=== PATIENT | male | born 1980 | race Caucasian/White ===

== ENCOUNTER 2017-02-13 15:26 | Emergency (ER) | payer OTHER ==
[~2017-02-13] VITALS: Ht 190.5 cm; Wt 100.0 kg
[~2017-02-13 15:26] MED LIST: CEPH-443 PO
[2017-02-13 15:35] VITALS: Ht 190.5 cm; Wt 100.0 kg
[2017-02-13] MEDS ORDERED: OLAN10TA7 PO (15:53)
[2017-02-13] MEDS ORDERED: QUET25TA26 PO (15:53)
--- NOTE | 2017-02-13 15:54 | RADRPT ---
PROCEDURE: XR Chest. CLINICAL INDICATION: Chest Pain. TECHNIQUE: Single frontal view of the chest was obtained. COMPARISON: None. FINDINGS: There is discoid atelectasis versus scarring in the right mid lung. There is mild cardiomegaly. There is no significant pleural effusion or pneumothorax. IMPRESSION: Discoid atelectasis versus scarring in the right mid lung. Mild cardiomegaly. RPTAT: EE Physician Nick Date Time Electronically viewed and signed by Jesse Olivas Physician on 02/13/2017 15:54 RA/
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
--- NOTE | 2017-02-13 17:08 | RADRPT ---
PROCEDURE: CT facial bones CLINICAL INDICATION: Trauma, pain TECHNIQUE: A CT of the facial bones was performed on a multidetector CT scanner utilizing thin axi al images. Sagittal and coronal reconstructions were provided. The CTDIvol is 30 mGy and the DLP i s 571mGy-cm. One or more of the following dose reduction techniques were used: Automated exposure c ontrol, Adjustment of the mA and/or kV according to patient size, and/or use of iterative reconstruc tion technique. COMPARISON: None available. FINDINGS: Right periorbital soft tissue swelling. Chronic left lamina papyracea fracture. The nasal bones, zyg omatic arches and pterygoid plates are intact. The mandible is intact. The temporomandibular joint s are in anatomic alignment on the closed mouth view. The right orbit is intact. The globes are gr ossly intact. Trace scattered paranasal sinus mucosal thickening without layering sinus fluid identi fied. Partial opacification of the left middle ear cavity. IMPRESSION: Right periorbital soft tissue swelling. No acute facial bone fracture. Chronic left lamina papyracea fracture. RPTAT: AA .Jaun Espinal MD, Date Time Electronically viewed and signed by .Jaun Espinal MD, on 02/13/2017 17:08 .T/
== END 2017-02-13 16:57 | disposition home or self-care (01) ==
LOC: E/R 15:26
DX: T40.1X1A Poisoning by heroin, accidental (unintentional), initial encounter (principal); R40.2252 Coma scale, best verbal response, oriented, at arrival to emergency department; F17.210 Nicotine dependence, cigarettes, uncomplicated; R07.9 Chest pain, unspecified; R40.2142 Coma scale, eyes open, spontaneous, at arrival to emergency department; R40.2362 Coma scale, best motor response, obeys commands, at arrival to emergency department
CPT/HCPCS: 70486; 71010; 93005

== ENCOUNTER 2017-02-22 14:23 | Emergency (ER) | payer OTHER ==
[~2017-02-22] VITALS: Ht 157.5 cm; Wt 103.0 kg
[~2017-02-22 14:23] MED LIST changes: -CEPH-443 PO; +OLAN10TA7 PO; +QUET25TA26 PO
[2017-02-22 14:27] VITALS: Ht 157.5 cm; Wt 103.0 kg
[2017-02-22] MEDS ORDERED: CEPH-443 PO (15:29)
[2017-02-22] MEDS ORDERED: CIPR7.5D4 LEFT EAR (15:29)
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
== END 2017-02-22 15:38 | disposition home or self-care (01) ==
LOC: FTE 14:23
DX: S61.201A Unspecified open wound of left index finger without damage to nail, initial encounter (principal); H60.502 Unspecified acute noninfective otitis externa, left ear; X58.XXXA Exposure to other specified factors, initial encounter; Y92.9 Unspecified place or not applicable; Z87.891 Personal history of nicotine dependence
CPT/HCPCS: 99283

== ENCOUNTER 2017-06-09 23:10 | Emergency (ER) | payer SELFPAY ==
[~2017-06-09] VITALS: Ht 190.5 cm; Wt 104.5 kg
[~2017-06-09 23:10] MED LIST changes: +CEPH-443 PO; +CIPR7.5D4 LEFT EAR
[2017-06-09 23:26] VITALS: Ht 190.5 cm; Wt 104.5 kg
== END 2017-06-10 02:28 | disposition left against medical advice (07) ==
LOC: E/R 23:10
DX: Z53.21 Procedure and treatment not carried out due to patient leaving prior to being seen by health care provider (principal)

== ENCOUNTER 2017-10-06 19:43 | Emergency (ER) | END 2017-10-06 22:09 | disposition left against medical advice (07) ==

== ENCOUNTER 2018-12-14 10:49 | Emergency (ER) | payer OTHER ==
[~2018-12-14] VITALS: Ht 190.5 cm; Wt 119.8 kg
[~2018-12-14 10:49] MED LIST changes: +CIPR7.5D LEFT EAR; -CIPR7.5D4 LEFT EAR; +QUET25TA PO; -QUET25TA26 PO
[2018-12-14 11:28] VITALS: Ht 190.5 cm; Wt 119.8 kg
--- NOTE | 2018-12-14 13:21 | ERD ---
ER Documentation Chief Complaint Chief Complaint BILATERAL LEG PAIN/SWELLING/REDNESS HPI The patient is a 38-year-old male, presenting with bilateral leg redness and swelling for the last couple days, denies similar symptoms previously, denies hemoptysis, hematemesis, dyspnea, abdominal pain, vomiting, denies similar symptoms previously. He smokes, denies drinking, history of heroin abuse Past medical history: None Past surgical history: None ROS All systems reviewed and are negative except as per history of present illness. Medications Home Meds Active Scripts Clindamycin Hcl* (Clindamycin Hcl*) 300 Mg Capsule, 300 MG PO QID for 10 Days, CAP Prov:EDITH WOODY MD 12/14/18 Cephalexin* (Keflex*) 500 Mg Capsule, 500 MG PO TID for 7 Days, CAP Prov:SONIA PATTERSON MD 02/22/17 Ciprofloxacin Hcl/Dexameth (Ciprodex Otic Suspension) 7.5 Ml Drops.susp, 4 DROP LEFT EAR BID for 7 Days, EA Prov:SONIA PATTERSON MD 02/22/17 Reported Medications Olanzapine* (Zyprexa*) 10 Mg Tablet, 10 MG PO DAILY, #30 TAB 02/13/17 Quetiapine Fumarate* (Seroquel*) 25 Mg Tablet, 25 MG PO DAILY, #30 TAB 02/13/17 Allergies Allergies: Coded Allergies: No Known Allergy (Unverified , 02/13/17) PMhx/Soc Hx Alcohol Use: No Hx Substance Use: Yes (HEROIN) Hx Tobacco Use: Yes Physical Exam Vitals Vital Signs Date Temp Pulse Resp B/P (MAP) Pulse Ox O2 O2 Flow FiO2 Time Delivery Rate 12/14/18 98.6 101 18 105/75 17:32 (85) 12/14/18 87 17 107/70 Room Air 16:25 (82) 12/14/18 72 12 111/75 100 Room Air 15:14 (87) 12/14/18 66 17 111/78 100 Room Air 13:56 (89) 12/14/18 97.4 85 16 135/63 97 11:28 (87) Physical Exam Const: No acute distress. Head: Atraumatic. Eyes: Normal Conjunctiva. ENT: Normal External Ears, Nose and Mouth. Neck: Full range of motion. No meningismus. Resp: Clear to auscultation bilaterally. Cardio: Regular rate and rhythm. Abd: Soft, non distended, normal bowel sounds, non tender. Skin: No petechiae or rashes. Back: No midline or flank tenderness. Ext: Bilateral lower extremity with minimal erythema and mild calf tenderness and edema Neur: Awake and alert. No focal deficit Psych: Normal Mood and Affect. Result Diagram: 12/14/18 1425 12/14/18 1425 Results 24 hrs Laboratory Tests Test 12/14/18 14:25 White Blood Count 6.7 10^3/ul Red Blood Count 4.90 10^6/ul Hemoglobin 11.8 g/dl Hematocrit 37.6 % Mean Corpuscular Volume 76.7 fl Mean Corpuscular Hemoglobin 24.1 pg Mean Corpuscular Hemoglobin Concent 31.4 g/dl Red Cell Distribution Width 17.6 % Platelet Count 311 10^3/UL Mean Platelet Volume 10.2 fl Immature Granulocytes % 0.300 % Neutrophils % 48.2 % Lymphocytes % 28.4 % Monocytes % 20.3 % Eosinophils % 2.3 % Basophils % 0.5 % Nucleated Red Blood Cells % 0.0 /100WBC Immature Granulocytes # 0.020 10^3/ul Neutrophils # 3.2 10^3/ul Lymphocytes # 1.9 10^3/ul Monocytes # 1.4 10^3/ul Eosinophils # 0.2 10^3/ul Basophils # 0.0 10^3/ul Nucleated Red Blood Cells # 0.0 10^3/ul Sodium Level 136 mmol/L Potassium Level 4.1 mmol/L Chloride Level 105 mmol/L Carbon Dioxide Level 27 mmol/L Anion Gap 4 Blood Urea Nitrogen 10 mg/dl Creatinine 0.65 mg/dl Est Glomerular Filtrat Rate mL/min > 60 mL/min Glucose Level 89 mg/dl Calcium Level 8.6 mg/dl Total Bilirubin 0.2 mg/dl Direct Bilirubin 0.00 mg/dl Indirect Bilirubin 0.2 mg/dl Aspartate Amino Transf (AST/SGOT) 43 IU/L Alanine Aminotransferase (ALT/SGPT) 42 IU/L Alkaline Phosphatase 139 IU/L B-Type Natriuretic Peptide 14 PG/ML Total Protein 6.8 g/dl Albumin 3.7 g/dl Globulin 3.10 g/dl Albumin/Globulin Ratio 1.19 [facility] [address] Radiology Main Line: [phone] DIAGNOSTIC IMAGING REPORT Patient: HOSSEIN GUZMAN : 1980 Age: 38 Sex: M MR #: [id number] DOS: 12/14/18 1332 Ordering MD: EDITH WOODY MD Location: E/R Room/Bed: PROCEDURE: XR Chest. CLINICAL INDICATION: Chest pain TECHNIQUE: Single portable view of the chest was obtained COMPARISON: None FINDINGS: The heart and mediastinum are within normal limits. There are right mid lung and left lower lobe linear atelectatic changes. The lungs are otherwise clear. There is no pleural effusion or pneumothorax. RPTAT: AA IMPRESSION: Mild scattered bilateral linear atelectatic changes. .Raheel Mcmullen MD, MD Date Time Electronically viewed and signed by .Raheel Mcmullen MD, on 12/14/2018 13:58 .S/ CC: EDITH WOODY MD [id number] [place] [address] Radiology Main Line: [phone] DIAGNOSTIC IMAGING REPORT Patient: HOSSEIN GUZMAN : 1980 Age: 38 Sex: M MR #: [id number] DOS: 12/14/18 133 Ordering MD: EDITH WOODY MD Location: E/R Room/Bed: PROCEDURE: US Lower extremity Venous. CLINICAL INDICATION: Bilateral lower extremity edema TECHNIQUE: Multiple sonographic images of the bilateral lower extremity deep venous system was obtained utilizing grayscale, color-flow, compressive sonography and doppler imaging with augmentation. The images were reviewed on a PACS workstation. COMPARISON: None. FINDINGS: There is normal compressibility and flow within the bilateral common femoral, femoral , posterior tibial and popliteal veins. RPTAT: AA IMPRESSION: No sonographic evidence for deep venous thrombosis. .Raheel Mcmullen MD, MD Date Time Electronically viewed and signed by .Raheel Mcmullen MD, on 12/14/2018 14:16 .S/ CC: EDITH WOODY MD [id number] MEDICAL MAKING DECISION: The patient is a 38-year-old male, presenting with acute bilateral leg cellulitis, is stable for o/p follow-up The differential diagnoses considered include but are not limited to DVT, peripheral edema, peripheral vascular disease, lymphedema Departure Diagnosis: Primary Impression: Cellulitis Additional Impression: Anemia Condition: Good Comments He was discharged with clindamycin I discussed the findings with the patient. I advised the patient to follow-up with the primary physician in about 2-3 days, sooner if needed and return if any concern. Disclaimer: Inadvertent spelling and grammatical errors are likely due to EHR/dictation software use and do not reflect on the overall quality of patient care. Also, please note that the electronic time recorded on this note does not necessarily reflect the actual time of the patient encounter. EDITH WOODY MD Dec 14, 2018 13:21
[2018-12-14] MEDS ORDERED: CLIN300C10 PO (15:58)
[2018-12-14 17:32] VITALS: BP 105/75; PULSE 101; RESP 18
== END 2018-12-14 17:36 | disposition home or self-care (01) ==
LOC: E/R 10:49
DX: L03.116 Cellulitis of left lower limb (principal); L03.115 Cellulitis of right lower limb; D64.9 Anemia, unspecified; R07.9 Chest pain, unspecified
CPT/HCPCS: 36415; 71045; 80053; 83880; 85025; 93970; Z7502

== ENCOUNTER 2019-05-25 14:47 | Emergency (ER) | payer OTHER ==
[~2019-05-25] VITALS: Ht 190.5 cm; Wt 110.0 kg
[~2019-05-25 14:47] MED LIST changes: +CLIN300C10 PO; +MUPI22OI2 TOP; +SULF1TAB31 PO
[2019-05-25 14:50] VITALS: Ht 190.5 cm; Wt 110.0 kg
[2019-05-25] MEDS ORDERED: TRIMETHOPRIM/SULFAMETHOX (DS) TAB PO ONE (15:30)
[2019-05-25] MEDS ORDERED: CEPHALEXIN 500 MG CAP PO ONE (15:30)
[2019-05-25 15:40] VITALS: BP 138/64; PULSE 80; RESP 18
[2019-05-25] MEDS ORDERED: IBUPROFEN 800 MG TAB PO ONE (16:00)
== END 2019-05-25 15:50 | disposition home or self-care (01) ==
LOC: E/R 14:47
DX: L73.9 Follicular disorder, unspecified (principal); F17.210 Nicotine dependence, cigarettes, uncomplicated; F19.939 Other psychoactive substance use, unspecified with withdrawal, unspecified
CPT/HCPCS: Z7502; Z7610; 99283